=== PATIENT | female | born 1950 | race Caucasian/White ===

== ENCOUNTER 2021-09-04 08:28 | Day surgery (SDC) | payer OTHER ==
[2021-09-04 08:30] LABS: Absolute Lymphocytes (CBC) 2.4 K/uL (0.7-4.9); Hematocrit 40.4 % (36.0-45.0); Lymphocytes % 32.4 % (15.3-44.8); MPV 7.4 fL (7.6-11.3); RBC Red Blood Cell Count 4.75 M/uL (3.86-4.86)
--- NOTE | 2021-09-04 08:42 | RAD REPORT ---
EXAM DESCRIPTION: Georgina Felipe (2 Views)09/04/2021 8:30 am CLINICAL HISTORY: Preop for cholecystectomy./hypertension COMPARISON: None FINDINGS: The lungs appear clear of acute infiltrate. The heart is normal size IMPRESSION: No acute abnormalities displayed
[2021-09-04 08:53] LABS: Albumin 3.6 g/dL (3.4-5.0); Bilirubin Direct 0.1 mg/dL (0-0.2); Bilirubin Total 0.4 mg/dL (0.2-1.0); Potassium 3.7 mmol/L (3.5-5.1); Protein, Total 7.8 g/dL (6.4-8.2)
[2021-09-04] MEDS ORDERED: Ringers Lactate 1,000 ML IV ONE (09:03)
[2021-09-04] MEDS ORDERED: ROCURONIUM 50 MG/5 ML VIAL IV ONE (09:56)
[2021-09-04] MEDS ORDERED: FENTANYL CITR 100 MCG/2 ML ONE (09:56)
[2021-09-04] MEDS ORDERED: LIDOCAINE 2% MPF 5 ML VIAL ONE (09:56)
[2021-09-04] MEDS ORDERED: propofoL 200 MG/20 ML VIAL IV ONE (09:56)
[2021-09-04] MEDS ORDERED: MIDAZOLAM HCL 2 MG/2 ML INJ ONE (09:56)
[2021-09-04] MEDS ORDERED: dexAMETHasone 10 MG/ML VIAL ONE (09:56)
[2021-09-04] MEDS ORDERED: ONDANSETRON 4 MG/2 ML VIAL ONE ×2 (09:57→11:55)
[2021-09-04] MEDS: CEFOXITIN SODIUM 1 GM/VIAL ONE ×2 (10:08→10:50)
[2021-09-04] MEDS ORDERED: ACETAMINOPHEN 500 MG TAB ONE (10:31)
[2021-09-04] MEDS ORDERED: CELECOXIB 100 MG CAPSULE ONE (10:31)
--- NOTE | 2021-09-04 11:13 | P.BOP ---
Preoperative diagnosis: acute cholecystitis, symptomatic cholelithiasis, RUQ abd pain Postoperative diagnosis: same, periumbilical subQ mass Primary procedure: 1. Laparoscopic cholecystectomy Secondary procedure: 2. Excisional biopsy of periumbilical subQ mass 0.5 cm Language Teacher: BRITTANY CASTILLO ([employer]) Estimated blood loss: <10cc Specimen: gb, mass Anesthesia: General Complications: None Transferred to: Recovery Room Condition: Good
[2021-09-04] MEDS ORDERED: NEOSTIGMINE 1 MG/ML -10 ML VIAL ONE (11:16)
[2021-09-04] MEDS ORDERED: GLYCOPYRROLATE 0.2 MG/ML SYR ONE (11:17)
--- NOTE | 2021-09-04 11:54 | DS ---
Diagnoses: Acute cholecystitis, symptomatic cholelithiasis, right upper quadrant abdominal pain, per iumbilical subcutaneous mass. Procedures: Laparoscopic cholecystectomy and excisional biopsy of periumbilical subcutaneous mass. Disposition: Home. Activity: As tolerated. No heavy lifting. Plan: Follow up in my office in 1 week. Call for appointment at [phone]. Keep area dry for 48 shante rs, then may shower. LURDES/MICHELLE Voice ID: [id number] Report ID: [id number]
[2021-09-04] MEDS ORDERED: HYDROMORPHONE HCL 1 MG/ML INJ ONE (11:55)
--- NOTE | 2021-09-04 11:57 | OP ---
Date of Procedure: 09/04/2021 Surgeon: Ed Kaur MD Blaster Helper: Monica Naik. Preoperative Diagnoses: Acute cholecystitis, symptomatic cholelithiasis, right upper quadrant abdomi nal pain. Postoperative Diagnoses: Acute cholecystitis, symptomatic cholelithiasis, right upper quadrant abdom inal pain plus periumbilical subcutaneous mass. Procedures: 1.Laparoscopic cholecystectomy. 2.Excisional biopsy of periumbilical subcutaneous mass 0.5 cm. Estimated Blood Loss: Less than 10 cc. Anesthesia: General plus local. Indication: This is the case of a 70-year-old patient, who comes to us with above diagnoses. Fully explained the benefits, alternatives, and risks of laparoscopic possible open cholecystectomy, which include, but not limited to infection, bleeding, damage to adjacent structures, anesthesia complicati on, choledocholithiasis, bile leak, pancreatitis, NM, and even . She also understands this may not relieve any symptoms. She might need more than one surgical intervention. She understood, sangeeta d a consent. Procedure In Detail: The patient was brought to the operating room, placed in supine position. Anes thesia was done without complication. Abdominal area was prepped and draped in the usual sterile fas hion. Local anesthesia was applied to the periumbilical region. We noticed skin in the periumbilica l region, there was an ulcerated subcutaneous mass present. I remembered in the past she stated that she was told in the past that she has drainage bellybutton, but it comes on and off. I believe I re moved that lump and sent it for biopsy. We always going to have a question for this may start draini ng. At this moment, it may compromise the repair of that area. We removed the area and removed that subcutaneous mass under a wedge incision. We extended the incision. Then, on sending specimen out, we did not see anything going deeper. So at that moment, I proceeded then to open the fascia under direct visualization, put a Vicryl #1 inside of the fascia. Adriana trocar was carefully introduced. Pneumoperitoneum was obtained. I placed 2 more trocars, 5 mm each one of them in the epigastric and right upper quadrant area under direct visualization. This allowed me to put a grasper in the fundu s of the gallbladder, another grasper in the infundibulum, retracting the gallbladder in the inferola teral fashion, exposing the triangle of Calot, and obtaining critical view. Cystic duct and cystic a rtery were clearly isolated, freed circumferentially and a connection between those and the gallbladd er were clearly identified. I proceeded to ligate those by using at least 3 clips proximal, 1 clip d istal, ligation in middle. Same was done with the cystic artery. A small little branch of the cysti c artery was clearly identified and ligated using same technique. Hepatic arteries and common bile d uct were protected at all times. The area was inspected once again. No bile leak. No bleeding. Th e gallbladder was removed from liver using Bovie cauterizer and removed from abdominal cavity using a n EndoCatch through the umbilical incision. The area was inspected once again. No bile leak. No bl eeding. At that moment, I proceeded to remove the trocars under direct vision. Deflated pneumoperit oneum. Closed the fascia with #1 Vicryl. Irrigated subcutaneous tissue, closed that with 3-0 chromi c and skin with kee, also including the area that we excised in the past. The patient was sent t o recovery in stable condition. LURDES/MICHELLE Voice ID: [id number] Report ID: [id number]
[2021-09-04 12:00] VITALS: O2SAT 96
[2021-09-04 13:07] VITALS: BP 143/66; TEMP 96.7
--- NOTE | 2021-09-04 13:10 | EKG ---
Test Date: 2021-09-04 Test Time: 08:12:16 [employer]: PREO MEASUREMENT RESULTS: Intervals: Rate: 66 SD: 178 QRSD: 86 QT: 404 QTc: 423 Henry: P: 7 SD: 178 QRS: -12 T: 61 INTERPRETIVE STATEMENTS: Normal sinus rhythm Normal ECG Compared to ECG 09/03/1998 15:06:00 No significant changes Electronically Signed On 09-04-21 13:09:48 CDT by Fabricio Pride
== END 2021-09-04 12:50 | disposition home or self-care (01) ==
LOC: OR 08:28
PROVIDERS: ATTEND Surgery
PROC: 0JB80ZZ Excision of Abdomen Subcutaneous Tissue and Fascia, Open Approach (ICD-10-PCS; 2021-09-04)
PROC: 0FT44ZZ Resection of Gallbladder, Percutaneous Endoscopic Approach (ICD-10-PCS; principal; 2021-09-04 10:00)
DX: K80.10 Calculus of gallbladder with chronic cholecystitis without obstruction (principal); R22.2 Localized swelling, mass and lump, trunk; L90.5 Scar conditions and fibrosis of skin; Z20.822 Contact with and (suspected) exposure to COVID-19
CPT/HCPCS: 93005; 85025; 80048; 36415; 82150; 80076; 88304; 88305; 83690; 71046; 47562; 11400; U0003; J2704; J2710; J2250; J3010; J1100; J1170; J7120; J0694; J2405 ×2